=== PATIENT | female | born 1965 | race Hispanic/Latino ===

== ENCOUNTER 2018-02-24 22:51 | Observation (INO) | payer OTHER ==
[~2018-02-24] VITALS: Ht 152.4 cm; Wt 93.6 kg
--- NOTE | 2018-02-24 22:52 | ED CARDIAC/CP/PALPITATIONS ---
History of Present Illness General Chief Complaint: Chest Pain Stated Complaint: CHEST PAIN Source: patient Exam Limitations: no limitations Vital Signs & Intake/Output Vital Signs & Intake/Output Vital Signs Date Time Temp Pulse Resp B/P B/P Pulse O2 O2 Flow FiO2 Mean Ox Delivery Rate 02/24 2342 99.0 72 20 155/71 96 Room Air ED Intake and Output 02/25 0000 02/24 1200 Intake Total Output Total Balance Patient 200 lb Weight Weight Reported by Patient Measurement Method Allergies Coded Allergies: No Known Allergies (02/24/18) Triage Nurses Notes Reviewed? yes Onset: Abrupt Duration: minute(s):, resolved prior to arrival Timing: single episode today Location: central Radiation: jaw, neck Activities at Onset: none Prior Chest Pain/Card Workup: no prior chest pain Aspirin Today: 325 mg x 1, provided at home Associated Symptoms: dizziness HPI: 52 yo woman h/o aortic stenosis, "I am being evaluated for a valve replacement," presents with episode of chest pain and near syncope. She shares that approximately 1 hour prior to arrival, she had an episode of chest pressure radiating to her neck, associated with dizziness and sweating. The episode lasted 30 minutes, was 7/10 at its worst, and has since completely resolved. She notes no orthopnea or dyspnea at rest. No lower extremity swelling. She is otherwise well. Past History Medical History Any Pertinent Medical History? see below for history Cardiovascular: aortic stenosis, hypertension, hyperlipidemia Surgical History Surgical History: gastric bypass Family History Hx Contributory? No Review of Systems Review of Systems Constitutional: Reports: no symptoms. EENTM: Reports: no symptoms. Respiratory: Reports: no symptoms. Cardiovascular: Reports: no symptoms. GI: Reports: no symptoms. Genitourinary: Reports: no symptoms. Musculoskeletal: Reports: no symptoms. Skin: Reports: no symptoms. Neurological/Psychological: Reports: no symptoms. Hematologic/Endocrine: Reports: no symptoms. Immunologic/Allergic: Reports: no symptoms. All Other Systems: Reviewed and Negative Physical Exam Physical Exam General Appearance: well developed/nourished, no apparent distress Head: atraumatic, normal appearance Eyes: Bilateral: normal appearance. Ears, Nose, Throat: normal pharynx, normal ENT inspection Neck: normal inspection, supple, full range of motion Respiratory: normal breath sounds, chest non-tender, no respiratory distress, quiet respiration Cardiovascular: 3/6 systolic murmur Gastrointestinal: normal bowel sounds, soft, non-tender Back: normal inspection Extremities: normal inspection, normal capillary refill, normal range of motion Neurologic/Psych: no motor/sensory deficits, awake, alert, oriented x 3 Skin: intact, normal color, warm/dry Core Measures ACS in differential dx? No CVA/TIA Diagnosis No Sepsis Present: No Sepsis Focused Exam Completed? No Progress Differential Diagnosis: ami, chf, unstable angina, aortic stenosis vs other Plan of Care: Orders Procedure Date/time Status Patient Data 02/[address] in observation 02/25 58 Active B-TYPE NATRIURETIC PEP (BNP) 02/25 2304 Complete TROPONIN LEVEL 02/25 2252 Complete LIPASE 02/25 2252 Complete HEPATIC FUNCTION PANEL 02/25 2252 Complete D-DIMER 02/25 2252 Complete CBC WITHOUT DIFFERENTIAL 02/25 2252 Complete BASIC METABOLIC PANEL 02/25 2252 Complete AMYLASE 02/25 2252 Complete EKG 02/25 2252 Active Laboratory Tests 02/24/18 231: Xri-[id number] Pept 46.3 02/24/18 2311: Anion Gap 8, Estimated GFR > 60, BUN/Creatinine Ratio 20.0, Glucose 93, Calcium 9.4, Total Bilirubin 0.4, Direct Bilirubin 0.2, AST 26, ALT 23, Alkaline Phosphatase 85, Troponin I < 0.01, Total Protein 7.7, Albumin 4.5, Amylase 55, Lipase 137, D-Dimer High Sensitivty < 200, CBC w Diff NO MAN DIFF REQ, RBC 4.38, MCV 91.1, MCH 30.4, MCHC 33.4, RDW 13.9, MPV 6.5 L, Gran % 60.4, Lymphocytes % 30.7, Monocytes % 7.3, Eosinophils % 1.3, Basophils % 0.3, Absolute Granulocytes 4.4, Absolute Lymphocytes 2.2, Absolute Monocytes 0.5, Absolute Eosinophils 0.1, Absolute Basophils 0 Diagnostic Imaging: Viewed by Me: Radiology Read. Discussed w/RAD: Radiology Read. Radiology Impression: PATIENT: AMADOUNOVEMBER PRESENT AGE: 52 PATIENT ACCOUNT NO: [id number] : 64 LOCATION: [facility] [place] ORDERING PHYSICIAN: Costa Palmer MD SERVICE DATE: 02/24/18-2251 EXAM TYPE: RAD - XRY-PORTABLE CHEST XRAY EXAMINATION: CHEST 1 VIEW CLINICAL INFORMATION: Chest pain. COMPARISON: None. TECHNIQUE: An AP view of the chest is provided. FINDINGS: The cardiac silhouette is not enlarged. The mediastinal and hilar contours are unremarkable. There are neither pleural effusions nor pneumothoraces. There are no consolidations. The osseous structures are unremarkable. IMPRESSION: No evidence for acute disease. DICTATED BY: Jimmy Bueno MD DATE/TIME DICTATED:02/24/182355 GREENS CUTTER:TONE DATE/TIME TRANSCRIBED:02/24/182355 CONFIDENTIAL, DO NOT COPY WITHOUT APPROPRIATE AUTHORIZATION. <Electronically signed in Other Vendor System> SIGNED BY: Jimmy Bueno MD 02/25/18 0000 Initial ED EKG: non specific st changes, sinus Departure Departure Disposition: STILL A PATIENT Condition: Stable Clinical Impression Primary Impression: Near syncope Secondary Impressions: Aortic stenosis Referrals: Patient Has No Primary Care Dr (PCP/Family) Departure Forms: Customer Survey General Discharge Information Observation Note Spoke With: Catherine CAMP,[facility] Patient In: Non-ED OBS Care Area Rationale for Observation: My rational for observation is as follows . pt with history of aortic stenosis, undergoing eval for possible repair, presenting with episode of near syncope, merits serial trops/ekg, cards eval in AM. Critical Care Note Critical Care Note Critical Care Time: non-applicable
[2018-02-24 23:26] LABS: ABSOLUTE BASOPHIL COUNT 0 /CUMM (0.0-0.2); ABSOLUTE EOSINOPHIL COUNT 0.1 /CUMM (0.0-0.7); ABSOLUTE GRANULOCYTE CT 4.4 /CUMM (1.4-6.5); ABSOLUTE LYMPH COUNT 2.2 /CUMM (1.2-3.4); ABSOLUTE MONOCYTE COUNT 0.5 /CUMM (0.10-0.60); BASOPHIL % 0.3 % (0.0-2.0); EOSINOPHIL % 1.3 % (0-5); GRANULOCYTE % 60.4 % (42.2-75.2); HEMATOCRIT 39.9 % (37-47); MEAN CORPUSCULAR HGB 30.4 PG (27.0-31.0); MEAN CORPUSCULAR HGB CONC 33.4 G/DL (33.0-37.0); MEAN CORPUSCULAR VOLUME 91.1 FL (81.0-99.0); MEAN PLATELET VOLUME 6.5 FL (7.4-10.4); PLATELET COUNT 381 /CUMM (130-400); RBC DISTRIBUTION WIDTH 13.9 % (11.5-14.5); RED BLOOD CELL CT 4.38 /CUMM (4.20-5.40); WHITE BLOOD CELL COUNT 7.2 /CUMM (4.8-10.8)
--- NOTE | 2018-02-25 | RADIOLOGY REPORT ---
EXAMINATION: CHEST 1 VIEW CLINICAL INFORMATION: Chest pain. COMPARISON: None. TECHNIQUE: An AP view of the chest is provided. FINDINGS: The cardiac silhouette is not enlarged. The mediastinal and hilar contours are unremarkable. There are neither pleural effusions nor pneumothoraces. There are no consolidations. The osseous structures are unremarkable. IMPRESSION: No evidence for acute disease.
--- NOTE | 2018-02-25 01:49 | History & Physical ---
Irvin Magaña 02/25/18 0147: General Information and HPI MD Statement: I have seen and personally examined AMADOUSALUD and documented this H&P. The patient is a 52 year old F who presented with a patient stated chief complaint of shortness of breath. Source of Information: patient Exam Limitations: no limitations History of Present Illness: 52 yo F with PMH of aortic stenosis (congenital bicuspid valve), HTN, HLD, DM2, previous gastric sleeve, OA of knees, carpel tunnel, and fibromyalgia came in with chief complaint of worsening shortness of breath for about 2 weeks prior to today's presentation. She saw her rn child in [place], for a routine f/u echocardiogram 02/12/18 of her aortic stenosis which showed slightly elevated aortic pressures in comparison to the previous time. Since this time she has had increased anxiety about cardiac stress related issues. She will experience chest pain on any type of exertion, such as walking upstairs and have a feeling of it radiating to her neck associated with diaphoresis and shortness of breath. These episodes ususally last less than a minute. She denies headache, vision changes, tingling/numbness in extremities, nausea, changes in urination or bowel habits. Allergies/Medications Allergies: Coded Allergies: No Known Allergies (02/24/18) Home Med list Cyclosporine (Restasis) 0.05 % DROPERETTE 1 GTT OPH DAILY Eye Care (Reported) Losartan Potassium (Cozaar) 50 MG TABLET 1 TAB PO DAILY HTN (Reported) Oxycodone HCl 30 MG TABLET 1 TAB PO Q4PRN fibromyalgia (Reported) Oxycodone HCl (Oxycontin) 30 MG TAB.ER.12H 1 TAB PO BID CHRONI (Reported) Rosuvastatin Calcium (Crestor) 20 MG TABLET 1 TAB PO DAILY HLD (Reported) Past History Travel History Traveled to [place] past 21 day No Medical History Neurological: NONE EENT: NONE Cardiovascular: aortic stenosis, hypertension, hyperlipidemia Respiratory: NONE Hepatic: NONE Renal: NONE Musculoskeletal: NONE Psychiatric: NONE Endocrine: NONE Blood Disorders: NONE 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 Home Smoking Status: Never Smoked ETOH Use: denies use Illicit Drug Use: denies illicit drug use Review of Systems Review of Systems Constitutional: Reports: see HPI. Exam & Diagnostic Data Last 24 Hrs of Vital Signs/I&O Vital Signs Date Time Temp Pulse Resp B/P B/P Pulse O2 O2 Flow FiO2 Mean Ox Delivery Rate 02/25 0229 98.2 58 18 140/82 98 Room Air 02/25 0144 97.8 64 18 162/81 93 Room Air 02/24 2342 99.0 72 20 155/71 96 Room Air Intake & Output 02/25 0800 02/25 0000 02/24 1600 Intake Total Output Total Balance Patient 206 lb 200 lb Weight Weight Reported by Patient Measurement Method Physical Exam General Appearance Alert, Oriented X3, Cooperative, No Acute Distress Skin No Rashes Skin Temp/Moisture Exam: Warm/Dry HEENT Atraumatic, EOMI Neck Supple Cardiovascular Normal S1, Normal S2, 3/6 systolic murmur Lungs Clear to Auscultation, Normal Air Movement Abdomen Normal Bowel Sounds, Soft, No Tenderness Extremities No Cyanosis, Normal Pulses Last 24 Hrs of Labs/Porter: Laboratory Tests 02/25/18 0500: Troponin I Pending 02/25/18 0500: Sodium Pending, Potassium Pending, Chloride Pending, Carbon Dioxide Pending, Anion Gap Pending, BUN Pending, Creatinine Pending, BUN/Creatinine Ratio Pending , Triglycerides Pending, Cholesterol Pending, LDL Cholesterol, Calc Pending, HDL Cholesterol Pending, Cholesterol/HDL Ratio Pending, CBC w Diff Pending, WBC Pending, RBC Pending, Hgb Pending, Hct Pending, MCV Pending, MCH Pending, MCHC Pending, RDW Pending, Plt Count Pending, MPV Pending 02/24/18 2311: Ppo-C-Vqcrvdlirje Pept 46.3 02/24/18 2311: Anion Gap 8, Estimated GFR > 60, BUN/Creatinine Ratio 20.0, Glucose 93, Calcium 9.4, Total Bilirubin 0.4, Direct Bilirubin 0.2, AST 26, ALT 23, Alkaline Phosphatase 85, Troponin I < 0.01, Total Protein 7.7, Albumin 4.5, Amylase 55, Lipase 137, D-Dimer High Sensitivty < 200, CBC w Diff NO MAN DIFF REQ, RBC 4.38, MCV 91.1, MCH 30.4, MCHC 33.4, RDW 13.9, MPV 6.5 L, Gran % 60.4, Lymphocytes % 30.7, Monocytes % 7.3, Eosinophils % 1.3, Basophils % 0.3, Absolute Granulocytes 4.4, Absolute Lymphocytes 2.2, Absolute Monocytes 0.5, Absolute Eosinophils 0.1, Absolute Basophils 0 Assessment/Plan Assessment: 52 yo F with PMH of aortic stenosis (congenital bicuspid valve), HTN, HLD, DM2, previous gastric sleeve, OA of knees, carpel tunnel, and fibromyalgia with chief complaint of episodes of worsening shortness of breath, palpitations, and chest pain radiation to the the neck after exertion for about 2 weeks prior to today's presentation. To note these symptoms only started occuring after her recent diagnosis of slightly higher aortic pressures compared to her previous. So far workup has been negative. Highly likely that anxiety plays some component in these episodes. Vitals: 99.0, 72, 20, 155/71, 96% on RA. CXR: No evidence of acute disease. EKG: Evidence of LVH. No acute ST-T wave changes. Trops: Negative x 1. D-Dimer: < 200 #Chest pain, SOB, Palpitations, R/O ACS #Bicuspid Aortic Valve #HTN #HLD #DM (No longer on metformin s/p gastric sleeve) #Fibromyalgia - Observe on cardiac telemetry - serial EKG and Trops - continuous cardiac monitoring - cardio consult with [facility] in the am - obtain echo records - nitrostat prn for chest pain - continue home medications for HTN, HLD, Fibromylagia - Accuchecks, NSS Tele obs DVT ppx Full Code Consisten Carb 2 Diet As Ranked By This Provider Problem List: 1. Aortic stenosis Core Measures/Misc (03/04) Acute Coronary Syndrome ACS Diagnosis: No Congestive Heart Failure Congestive Heart Failure Diagnosis No Cerebrovascular Accident CVA/TIA Diagnosis: No VTE (View Protocol) VTE Risk Factors Age>40 No Mechanical VTE Prophylaxis d/t N/A MechProphylax Ordered No VTE Pharm Prophylaxis d/t NA PharmProphylax ordered Sepsis (View protocol) Sepsis Present: No If YES complete Sepsis Event Note If YES complete Sepsis Event Note Fermin Mcfarland 02/25/18 0149: Core Measures/Misc (03/04) Sepsis (View protocol) If YES complete Sepsis Event Note If YES complete Sepsis Event Note Resident Review Statement Resident Statement: examined this patient, discussed with design engineering intern, agreed with design engineering intern Other Findings: This is a 52-year-old female with past medical history of aortic stenosis ( bicuspid aortic valve), hypertension, hyperlipidemia, previous gastric sleeve surgery, chondromalacia of bilateral patella, osteoarthritis of knee, fibromyalgia, diabetes mellitus, chronic pain came in with chief complaint of worsening shortness of breath since 2 weeks prior to today's presentation. She recently was at her rn child office, 1-1/2 week ago for follow-up of her aortic stenosis, an echocardiogram was done and she was told that her mean gradient is stable, a little higher than before however it is stable and she has mild aortic regurgitation. After this she was very anxious, was having shortness of breath associated with dizziness and diaphoresis along with chest pressure that radiated to her neck. She had one episode of chest pressure that lasted for 30 minutes, was 7 out of 10, resolved on its own. She was worried about her worsening shortness of breath and therefore presented to [place] emergency department. Review of system as mentioned above. Physical examination. Morbidly obese female, alert oriented 3, not in any acute distress. CVS S1-S2 present, systolic murmur. RS bilateral air entry, no adventitious sounds. PA : Stria present all over her lower abdomen with scars, soft, nontender. Bilateral lower extremity no edema clubbing or cyanosis. Her vitals on presentation temperature of 99.0, pulse of 72, respiration of 20, blood pressure of 155/71, she was saturating 96% on room air. Labs : white Count of 7.2, H/H of 13.3/39.9, platelet of 391. Electrolytes within normal limits, BUN/creatinine 12/0.6, initial set of troponin negative, d-dimer less than 200. EKG was consistent with left ventricular hypertrophy, no acute ST-T wave changes. Chest X-ray did not show any acute cardiopulmonary changes. Place the patient on telemetry for 24 hours observation Assessment. The patient presents with shortness of breath and chest pain, however the recent echocardiogram done as outpatient with Dr. Ha shows an EF of 60-65%, normal left ventricular cavity size, no wall motion abnormality is, stage I diastolic dysfunction, moderate aortic stenosis with mean gradient of 30 mmHg and aortic valve area of 1.2 cm. Her acute symptoms could be secondary to aortic stenosis however there seems to be a component of anxiety as well in communication with her physical findings. Since echo was recently done, we will hold off from having another echo, however it would be prudent to trend EKG and troponin. Problem List 1.Moderate 2. Chest Pain , r/o ACS. 3. h/o HTN 4.S/p gastric sleeve 5.Anxiety 6.Chronic Pain 7.Firbromyalgia 8 H/o DM Plan. * Continue to monitor on cardiac gambling monitor, intake and output, serial EKG and troponin, cardiology consult with Dr. Dixon's group in a.m. * Echo was recently done, showed aortic valve diameter of 1.2 cm with mean gradient of 30 mmHg, hold off on repeating echo for now. * Continue home blood pressure medication. * Continue to monitor fingerstick, NovoLog sliding scale, consistent carbohydrate diet. * Counseling for anxiety. * Continue home medication of OxyContin and oxycodone, consult for chronic opiate addiction, possible enrollment to methadone clinic. * Continue daily aspirin. * Continue statin. * Continue vitamin supplements. * As needed nitroglycerin for chest pain. please confirm CMR in am, patient remenbers names of the medicines but doesnt remember dosage and frequency , will need to verify in am - statin, ? other BP meds Patient is full code. Consistent carbohydrate 3 diet. DVT prophylaxis with Lovenox. Pain pathway Parish Alexander 02/25/18 0155: Core Measures/Misc (03/04) Sepsis (View protocol) If YES complete Sepsis Event Note If YES complete Sepsis Event Note Attending MD Review Statement Attending Statement Attending MD Statement: examined this patient, discuss w/resident/PA/HYDROMETEOROLOGIST, agreed w/resident/PA/HYDROMETEOROLOGIST Attending Assessment/Plan: Addendum by . Patient was seen and examined at bedside today ( 02/25/18) at 1:20Am.. Reviewed the history physical done by the resident. Reviewed the past medical family, family, social history. ROS: 10 point system reviewed and negative except as described above. Additional details: Patient has , morbid obesity, posterior gastric bypass, acute diabetes, hypertension, fibromyalgia presented for evaluation of midsternal chest pain. Patient says that she was at home sitting and watching TV, all of a sudden she started having midsternal chest pain severe in intensity , was radiating to her neck. Associated with the feeling of hot but no sweating. No radiation to left arm. Denied any shortness of breath. Denied any acid reflux. Patient denies any shortness of breath or chest pain on ambulation or exertion at baseline. Exam: Obese, not in distress, oriented 3. Cardiac examination-has 3 x 6 systolic murmur heard more prominently at the aortic area also heard in the apical and other cardiac areas. Rest of the examination is benign. EKG, labs reviewed. Assessment and plan: #Midsternal chest pain with radiation to neck-atypical, rule out chest pain. EKG is negative for any acute ischemic changes. Only has flat T waves in anterolateral leads. First set of troponins are negative. Give aspirin, as needed nitro. Cardiac evaluation in the a.m. #Aortic stenosis. Probably moderate given her exam. Patient states she had echocardiogram the last [address] Negrete at the [place]. She does not know the result. As per patient echo more than 3 months, the number was 32 ( assuming mean gradient pressure) Can get the echo report in the morning. Doubt her symptoms are because of unless it is a severe . #Morbid obesity, status post gastric sleeve surgery. #History of diabetes, patient states her diabetes is cured after bariatric surgery. #Hypertension, fibromyalgia-continue the home medications. Patient is admitted on observation status. Reviewed with the resident. Agree with the rest of the plan as per resident's note. Dr.Ravinder Delvis MD. Hospitalist. Pager: [phone], cell: [phone].
[2018-02-25 02:29] VITALS: BP 140/82
[2018-02-25] MEDS ORDERED: OXYCODONE HCL30 M1 PO (02:45)
[2018-02-25] MEDS ORDERED: OXYCONTIN30 M1 PO (02:46)
[2018-02-25 05:57] LABS: ABSOLUTE BASOPHIL COUNT 0 /CUMM (0.0-0.2); ABSOLUTE EOSINOPHIL COUNT 0.1 /CUMM (0.0-0.7); ABSOLUTE GRANULOCYTE CT 4.5 /CUMM (1.4-6.5); ABSOLUTE LYMPH COUNT 2.7 /CUMM (1.2-3.4); ABSOLUTE MONOCYTE COUNT 0.7 /CUMM (0.10-0.60); BASOPHIL % 0.2 % (0.0-2.0); EOSINOPHIL % 0.9 % (0-5); GRANULOCYTE % 56.5 % (42.2-75.2); HEMATOCRIT 37.4 % (37-47); MEAN CORPUSCULAR HGB 30.6 PG (27.0-31.0); MEAN CORPUSCULAR HGB CONC 33.5 G/DL (33.0-37.0); MEAN CORPUSCULAR VOLUME 91.2 FL (81.0-99.0); MEAN PLATELET VOLUME 6.5 FL (7.4-10.4); PLATELET COUNT 385 /CUMM (130-400); RBC DISTRIBUTION WIDTH 14.1 % (11.5-14.5)
[2018-02-25 06:59] VITALS: BP 134/82
--- NOTE | 2018-02-25 07:11 | Event Note ---
Event Note Event Note: No overnight events. Patient remained in sinus rhythm with heart rate between 6170. Patient remained afebrile, seen and examined this morning. Patient denied chest pain, palpitation, nausea, vomiting, chill, fever, short of breath, abdominal pain dysuria. Patient reported that her shortness of breath has been resolved. She is on room air maintaining saturation 93%. 52 YO F, morbid obese s/p bariatric surgery with PMH of aortic stenosis ( bicuspid aortic valve), hypertension, hyperlipidemia, previous gastric sleeve surgery, chondromalacia of bilateral patella, osteoarthritis of knee, fibromyalgia, diabetes mellitus, chronic pain came in with chief complaint of worsening shortness of breath since 2 weeks prior to today's presentation. Seeing the patient on telemetry floor for following problems. Under observation. Atypical chest pain: -Patient reported that she has chest pain that radiating to the neck and on presentation her symptoms were more likely due to anxiety. -Patient has history of moderate aortic stenosis and her echocardiogram was done [address] Ha. -Serial EKGs and troponins remain negative for any ischemic cardiac injury. -Continue aspirin -Nitroglycerin as needed for chest pain. -Cardiology recommended no further workup as inpatient. Patient will follow her machines technician as outpatient with further workup for ischemia and aortic valve. -We will get the records from Dr. Ha's office for her last echocardiogram. History of bicuspid aortic valve and aortic stenosis: -Patient had last echocardiogram recently that showed ejection fraction 60-65% with moderate aortic stenosis, mean gradient 30 mmHg and aortic valve area of 1.2 cm History of hypertension and hyperlipidemia: -Continue Lipitor 80 mg -Continue losartan 50 mg History of diabetes: -Patient has bariatric surgery and she is saying that her diabetes has been improved. -Accuchecks -Continue novolog according to sliding scale. -Diabetic diet. -We will call her pharmacy and confirm her medications and doses. History of anxiety: -Counseling for anxiety -Psychiatric consult if needed History of fibromyalgia and chronic pain: -Continue OxyContin and oxycodone DVT prophylaxis: Mechanical and subcutaneous Lovenox CODE STATUS: Full code
[2018-02-25] MEDS ORDERED: CRESTOR20 M2 PO (08:19)
[2018-02-25] MEDS ORDERED: COZAAR50 M1 PO (08:19)
[2018-02-25] MEDS ORDERED: RESTASIS1 EACH OPH (08:19)
[2018-02-25 09:48] VITALS: BP 134/82
--- NOTE | 2018-02-25 10:54 | Cons- Cardiology ---
General Information and HPI Consulting Request Date of Consult: 02/25/18 Requested By: Ricardo Rico MD Reason for Consult: chest pain Source of Information: patient, old records Exam Limitations: no limitations History of Present Illness: 52-year-old female past medical history bicuspid aortic valve with moderate to severe aortic stenosis last echo 02/12/2018, hypertension, fibromyalgia presents after episode of chest pain. Patient reports that she was sitting down watching television when she felt sudden onset retrosternal sharp chest pain that radiated to her neck. This was followed by palpitations, and shortness of breath. She subsequently felt lightheaded "a little bit" when she stood up, but denies associated nausea, diaphoresis. She feels that the symptoms lasted for about 1 minute. They have not recurred since. She has never experienced chest pain in the past. She denies PND/orthopnea, lower extemity swelling, however she does report that recently she has felt that when she exerts herself or climbs a flight of stairs she becomes dyspneic and diaphoretic. She is compliant with all medications. She denies cough, fever/chills. Allergies/Medications Allergies: Coded Allergies: No Known Allergies (02/24/18) Home Med List: Cyclosporine (Restasis) 0.05 % DROPERETTE 1 GTT OPH DAILY Eye Care (Reported) Losartan Potassium (Cozaar) 50 MG TABLET 1 TAB PO DAILY HTN (Reported) Oxycodone HCl 30 MG TABLET 1 TAB PO 4XDP fibromyalgia (Reported) Oxycodone HCl (Oxycontin) 30 MG TAB.ER.12H 1 TAB PO BID chronic pain ( Reported) Rosuvastatin Calcium (Crestor) 20 MG TABLET 1 TAB PO DAILY HLD (Reported) Current Medications: Current Medications Sig/Delta Start time Last Medication Dose Route Stop Time Status Admin Acetaminophen 650 MG Q6P PRN 02/25 0145 AC PO Acetaminophen 1,000 MG Q6P PRN 02/25 0145 AC IV Aspirin 81 MG DAILY 02/25 900 AC 02/25 PO 0815 Atorvastatin Calcium 40 MG 1700 02/25 1700 AC PO Cyclosporine 1 GTT DAILY 02/25 900 AC 02/25 OPH 0949 Enoxaparin Sodium 40 MG DAILY 02/25 900 AC SC Losartan Potassium 50 MG DAILY 02/25 900 AC 02/25 PO 0948 Oxycodone HCl 30 MG Q12 02/25 09 AC 02/25 PO 0815 Oxycodone HCl 30 MG Q6P PRN 02/25 0345 AC 02/25 PO 0824 Oxycodone/ 1 TAB Q6P PRN 02/25 0145 AC Acetaminophen PO Review of Systems Review of Systems: See HPI. Otherwise a 10 point review of systems was negative. 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 Surgical History Surgical History: gastric bypass Psychosocial History Smoking Status: Former Smoker Exam & Diagnostic Data Vital Signs and I&O Vital Signs Date Time Temp Pulse Resp B/P B/P Pulse O2 O2 Flow FiO2 Mean Ox Delivery Rate 02/26 948 64 134/82 02/25 0659 97.8 64 20 134/82 93 Room Air 02/25 0229 98.2 58 18 140/82 98 Room Air 02/25 0144 97.8 64 18 162/81 93 Room Air 02/24 2342 99.0 72 20 155/71 96 Room Air Intake & Output 02/25 1600 02/25 0000 02/24 1600 02/24 0000 Intake Total Output Total Balance Patient 93.582 kg 90.718 kg Weight Weight Reported by Patient Measurement Method Physical Exam: General: no apparent distress HEENT: NCAT, NO JVD Heart: s1s2, RRR, 2/6 harsh midsystolic murmur best heard RUSB radiating to the carotids Lungs: CTA b/l Abd: soft, nt Ext: no peripheral edema Labs/Porter Results: Laboratory Tests 02/25 02/25 02/25 0830 0500 0500 Chemistry Sodium (137 - 145 mmol/L) 140 Potassium (3.5 - 5.1 mmol/L) 4.2 Chloride (98 - 107 mmol/L) 103 Carbon Dioxide (22 - 30 mmol/L) 29 Anion Gap (5 - 16) 8 BUN (7 - 17 mg/dL) 11 Creatinine (0.5 - 1.0 mg/dL) 0.6 Estimated GFR (>60 ml/min) > 60 BUN/Creatinine Ratio (7 - 25 %) 18.3 Hemoglobin A1c (4.2 - 5.8 %) 5.9 H Troponin I (< 0.11 ng/ml) Cancelled < 0.01 Triglycerides (<150 mg/dL) 73 Cholesterol (<200 MG/DL) 155 LDL Cholesterol, Calc (65 - 129 mg/dL) 76 HDL Cholesterol (40 - 60 mg/dL) 65 H Cholesterol/HDL Ratio (0.00 - 4.23 %) 2 Hematology CBC w Diff NO MAN DIFF REQ WBC (4.8 - 10.8 /CUMM) 8.0 RBC (4.20 - 5.40 /CUMM) 4.10 L Hgb (12.0 - 16.0 G/DL) 12.5 Hct (37 - 47 %) 37.4 MCV (81.0 - 99.0 FL) 91.2 MCH (27.0 - 31.0 PG) 30.6 MCHC (33.0 - 37.0 G/DL) 33.5 RDW (11.5 - 14.5 %) 14.1 Plt Count (130 - 400 /CUMM) 385 MPV (7.4 - 10.4 FL) 6.5 L Gran % (42.2 - 75.2 %) 56.5 Lymphocytes % (20.5 - 51.1 %) 33.9 Monocytes % (1.7 - 9.3 %) 8.5 Eosinophils % (0 - 5 %) 0.9 Basophils % (0.0 - 2.0 %) 0.2 Absolute Granulocytes (1.4 - 6.5 /CUMM) 4.5 Absolute Lymphocytes (1.2 - 3.4 /CUMM) 2.7 Absolute Monocytes (0.10 - 0.60 /CUMM) 0.7 H Absolute Eosinophils (0.0 - 0.7 /CUMM) 0.1 Absolute Basophils (0.0 - 0.2 /CUMM) 0 02/24 02/24 2311 2311 Chemistry Sodium (137 - 145 mmol/L) 140 Potassium (3.5 - 5.1 mmol/L) 3.8 Chloride (98 - 107 mmol/L) 100 Carbon Dioxide (22 - 30 mmol/L) 32 H Anion Gap (5 - 16) 8 BUN (7 - 17 mg/dL) 12 Creatinine (0.5 - 1.0 mg/dL) 0.6 Estimated GFR (>60 ml/min) > 60 BUN/Creatinine Ratio (7 - 25 %) 20.0 Glucose (65 - 99 mg/dL) 93 Calcium (8.4 - 10.2 mg/dL) 9.4 Total Bilirubin (0.2 - 1.3 mg/dL) 0.4 Direct Bilirubin (< 0.4 mg/dL) 0.2 AST (14 - 36 U/L) 26 ALT (9 - 52 U/L) 23 Alkaline Phosphatase (<127 U/L) 85 Troponin I (< 0.11 ng/ml) < 0.01 [id number] Pept (<125 pg/mL) 46.3 Total Protein (6.3 - 8.2 g/dL) 7.7 Albumin (3.5 - 5.0 g/dL) 4.5 Amylase (30 - 110 U/L) 55 Lipase (23 - 300 U/L) 137 Coagulation D-Dimer High Sensitivty (0 - 243 ng/ml) < 200 Hematology CBC w Diff NO MAN DIFF REQ WBC (4.8 - 10.8 /CUMM) 7.2 RBC (4.20 - 5.40 /CUMM) 4.38 Hgb (12.0 - 16.0 G/DL) 13.3 Hct (37 - 47 %) 39.9 MCV (81.0 - 99.0 FL) 91.1 MCH (27.0 - 31.0 PG) 30.4 MCHC (33.0 - 37.0 G/DL) 33.4 RDW (11.5 - 14.5 %) 13.9 Plt Count (130 - 400 /CUMM) 381 MPV (7.4 - 10.4 FL) 6.5 L Gran % (42.2 - 75.2 %) 60.4 Lymphocytes % (20.5 - 51.1 %) 30.7 Monocytes % (1.7 - 9.3 %) 7.3 Eosinophils % (0 - 5 %) 1.3 Basophils % (0.0 - 2.0 %) 0.3 Absolute Granulocytes (1.4 - 6.5 /CUMM) 4.4 Absolute Lymphocytes (1.2 - 3.4 /CUMM) 2.2 Absolute Monocytes (0.10 - 0.60 /CUMM) 0.5 Absolute Eosinophils (0.0 - 0.7 /CUMM) 0.1 Absolute Basophils (0.0 - 0.2 /CUMM) 0 Diagnostic Data EKG Results Personally reviewed; normal sinus rhythm, nonspecific T-wave abnormalities CXR Results IMPRESSION: No evidence for acute disease. Other Results Telemetry: Personally reviewed, normal sinus rhythm outpatient TTE 02/12/2018: ~* Normal left ventricular cavity size. ~Mild concentric left ventricular hypertrophy. ~LVEF estimated by visual assessment was between 60-65%. ~No regional wall motion abnormalities. ~Mild diastolic dysfunction consistent with impaired relaxation with low to normal filling pressure (grade 1). * Aortic valve is bicuspid. ~Moderate aortic valve calcification. ~Moderate aortic ~stenosis. ~Mean gradient is 30 mmHg. ~Aortic valve area is 1.2 cm2. ~ Mild aortic regurgitation. * All visible segments of the aorta are normal in size. Dobutamine Stress Echo 11/2017: negative Assessment/Plan Assessment/Plan 1. chest pain, atypical 2. bicuspid aortic valve 3. moderate-severe aortic stenosis 4. htn 5. fibromyalgia Chest pain has not recurred. Troponin negative. No acute ischemic ECG changes. Clinical presentation is atypical for ACS. D-dimer negative. BP is well controlled. The patient has not had a stress test in around 3 years. A repeat ischemic workup may be warranted, and given patient's recent insidious decline in exercise tolerance, it may be that she needs to be reevaluated for intervention on her aortic valve. However this can be done as an outpatient. No further inpatient workup is warranted at this time. Thank you for the opportunity to assist in the managemetn of your patient. Consult Acknowledgment - Thank you for your consult request.
--- NOTE | 2018-02-25 11:53 | Patient Discharge Instructions ---
Discharge Instructions General Discharge Information You were seen/treated for: Atypical chest pain Watch for these problems: Chest pain, palpitation, dizziness, shortness of breath, leg swelling and hematemesis. If you experience any of these symptoms please come to ED or call to her primary care physician Special Instructions: Follow-up with your primary care physician in 1 week Follow-up with your window/distribution clerk in 1 week Diet Recommended Diet: Diabetic Activity Activity Self Limited: Yes Acute Coronary Syndrome Inclusion Criteria At DC or during hospital stay patient has or had the following: ACS DIAGNOSIS No Discharge Core Measures Meds if any: Prescribed or Continued at Discharge Meds if any: NOT Prescribed or Continued at Discharge Congestive Heart Failure Inclusion Criteria At DC or during hospital stay patient has or had the following: CHF DIAGNOSIS No Discharge Core Measures Meds if any: Prescribed or Continued at Discharge Meds if any: NOT Prescribed or Continued at Discharge Cerebrovascular accident Inclusion Criteria At DC or during hospital stay patient has or had the following: CVA/TIA Diagnosis No Discharge Core Measures Meds if any: Prescribed or Continued at Discharge Meds if any: NOT Prescribed or Continued at Discharge Venous thromboembolism Inclusion Criteria VTE Diagnosis No VTE Type NONE VTE Confirmed by (Test) NONE Discharge Core Measures - Per Current guidelines, there needs to be overlap - treatment for the first 5 days of Warfarin therapy. - If discharged on Warfarin prior to 5 days of - overlap therapy, the patient will need to be - assessed for post discharge needs including - *Post discharge parental anticoagulation - *Warfarin and/or parental anticoagulation education - *Follow up date to check INR post discharge At least 5 days overlap therapy as Inpatient No Meds if any: Prescribed or Continued at Discharge Note: Overlap Therapy is Warfarin and Anticoagulant Meds if any: NOT Prescribed or Continued at Discharge
--- NOTE | 2018-02-25 15:03 | PN- Att Addend ---
Attending Addendum Attending Brief Note pt seen and examined. pt seen by cardiology Dr Lugo and d/w pt the care plan. pt had a recent echo 2 weeks ago with her manager income tax Emily Ha. Plan would be for the pt to f/u with her manager income tax for furhter workup . pt being dced home in stable condition. see dc summary for more details.
== END 2018-02-25 13:48 ==
LOC: ERH 22:51 → 1NO 02-25 00:58 → ERHI 02-25 00:58 → ENRESERV 02-25 01:24 → EDBEDREQ 02-25 01:41 → 1NO 02-25 01:50
PROVIDERS: Internal Medicine; Pediatrics
DX: R55 Syncope and collapse (principal); I35.0 Nonrheumatic aortic (valve) stenosis; I10 Essential (primary) hypertension; E78.5 Hyperlipidemia, unspecified; R07.9 Chest pain, unspecified; M79.7 Fibromyalgia; E66.01 Morbid (severe) obesity due to excess calories; E11.9 Type 2 diabetes mellitus without complications; F41.9 Anxiety disorder, unspecified; G89.29 Other chronic pain; M17.0 Bilateral primary osteoarthritis of knee; R07.89 Other chest pain; R06.02 Shortness of breath; Z87.891 Personal history of nicotine dependence
CPT/HCPCS: 6020; 36592; 71045; 82436; 93005; 93010; G0378; J1650; J3490